=== PATIENT | male | born 1940 | race Caucasian/White ===

== ENCOUNTER 2018-02-24 08:44 | Emergency (ER) | payer OTHER, MEDICAID ==
[~2018-02-24] VITALS: Ht 193 cm; Wt 81.6 kg
[2018-02-24 08:51] VITALS: Ht 193 cm; Wt 81.6 kg
[2018-02-24 10:35] LABS: CALCIUM 8.4 mg/dL (8.5-10.1); CARBON DIOXIDE 27.9 mmol/L (21-32); CHLORIDE SERUM 102 mmol/L (98-107); CREATININE SERUM 1.1 mg/dL (0.7-1.3); GLUCOSE SERUM 173 mg/dL (74-106); SODIUM SERUM 138 mmol/L (136-145)
[2018-02-24 10:38] LABS: BASOPHIL % 0.4 % (0-2); PLATELET COUNT 236 x10^3mcL (130-400); RED CELL DISTRIBUTION WIDTH 14.3 % (11.5-14.5)
[2018-02-24 10:41] LABS: ALBUMIN 3.4 g/dL (3.4-5.0); ALKALINE PHOSPHATASE 66 U/L (46-116); ALT/SGPT 17 U/L (16-63); AST/SGOT 16 U/L (15-37); BILIRUBIN TOTAL 0.3 mg/dL (0.20-1.00); HDL CHOLESTEROL 54 mg/dL (40-60); PHOSPHOROUS 2.6 mg/dL (2.5-4.9); TOTAL PROTEIN, SERUM 7.7 g/dL (6.4-8.2)
[2018-02-24 10:45] LABS: CHOLESTEROL 119 mg/dL (<200)
[2018-02-24 11:04] LABS: MAGNESIUM 0.7 mg/dL (1.8-2.4)
[2018-02-24] MEDS ORDERED: PRO60 PO (13:43)
[2018-02-24] MEDS ORDERED: LISINOPRIL10 MG PO (13:43)
[2018-02-24] MEDS ORDERED: TRAMADOL HCL50 MG PO (13:44)
[2018-02-24] MEDS ORDERED: METFORMIN HYD1000 M2 PO (13:44)
[2018-02-24] MEDS ORDERED: GLIPIZIDE10 M2 PO (13:44)
[2018-02-24] MEDS ORDERED: GOOD SENSE OMEP20 MG PO (13:44)
[2018-02-24] MEDS ORDERED: LIPITOR40 MG PO (13:45)
[2018-02-24] MEDS ORDERED: ARICEPT5 MG PO (13:45)
[2018-02-24 17:08] VITALS: BP 133/94
== END 2018-02-24 17:08 | disposition short-term general hospital (02) ==
LOC: ED 08:44
PROVIDERS: Emergency Medicine
DX: I63.9 Cerebral infarction, unspecified (principal); E83.42 Hypomagnesemia; F17.210 Nicotine dependence, cigarettes, uncomplicated; I10 Essential (primary) hypertension; E11.9 Type 2 diabetes mellitus without complications; J45.909 Unspecified asthma, uncomplicated; I25.2 Old myocardial infarction; Z86.73 Personal history of transient ischemic attack (TIA), and cerebral infarction without residual deficits; Z88.2 Allergy status to sulfonamides; Z88.6 Allergy status to analgesic agent; Z71.6 Tobacco abuse counseling; Z59.0 Homelessness
CPT/HCPCS: 99406; J3475; Q0092